=== PATIENT | male | born 1930 | race Caucasian/White ===

== ENCOUNTER 2017-05-12 02:37 | Emergency (ER) | payer OTHER ==
[~2017-05-12] VITALS: Ht 167.6 cm; Wt 79.4 kg
[~2017-05-12 02:37] MED LIST: ASPIR 8181 MG PO; FLOMAX0.4 MG PO; FLONASE 0.05%50 MCG NASAL; MEMANTINE HCL10 MG PO; SILACE50 MG/5 ML PO; [UNRECOGNIZED DRUG - OTHER]
[2017-05-12] MEDS ORDERED: TYLENOL EXTRA500 MG PO (03:17)
[2017-05-12] MEDS ORDERED: MIRALAX17 GM PO ×2 (03:18→03:19)
[2017-05-12] MEDS ORDERED: CRANBERRY400 MG PO (03:18)
[2017-05-12] MEDS ORDERED: MILK OF MA2400 MG/10 PO (03:19)
[2017-05-12] MEDS ORDERED: REFRESH OPTIVE15 ML OPHTHALMIC (03:20)
[2017-05-12] MEDS ORDERED: SENNA-S TABLET1 EACH PO (03:21)
[2017-05-12] MEDS ORDERED: TYLENOL325 MG PO (04:10)
[2017-05-12] MEDS ORDERED: ULTRAM 50MG TAB50 MG PO (04:10)
== END 2017-05-12 04:30 | disposition home or self-care (01) ==
LOC: ER 02:37
DX: S00.03XA Contusion of scalp, initial encounter (principal); S22.31XA Fracture of one rib, right side, initial encounter for closed fracture; Z88.2 Allergy status to sulfonamides; W06.XXXA Fall from bed, initial encounter; Y93.89 Activity, other specified; Y92.89 Other specified places as the place of occurrence of the external cause; Y99.8 Other external cause status

== ENCOUNTER → 2017-11-15 | Outpatient (CLI) | payer OTHER ==
[~2017-11-15] MED LIST changes: +CRANBERRY400 MG PO; +MILK OF MA2400 MG/10 PO; +MIRALAX17 GM PO; +REFRESH OPTIVE15 ML OPHTHALMIC; +SENNA-S TABLET1 EACH PO; +TYLENOL EXTRA500 MG PO; +TYLENOL325 MG PO; +ULTRAM 50MG TAB50 MG PO
[2017-11-15 07:59] LABS: CREATININE 1.1 mg/dL (0.7-1.3)
== END ==
LOC: CAT 07:24
PROVIDERS: Internal Medicine
DX: R91.8 Other nonspecific abnormal finding of lung field (principal); G30.9 Alzheimer's disease, unspecified

== ENCOUNTER 2019-03-14 14:07 | Inpatient (IN) | payer OTHER ==
[~2019-03-14] VITALS: Ht 157.5 cm; Wt 63.5 kg
[2019-03-14 14:08] VITALS: BP 117/50
[2019-03-14 14:41] LABS: ABSOLUTE NEUTROPHILS 8.9 thou/uL (1.4-8.2); BASOPHILS 0.1 % (0.0-2.0); EOSINOPHILS 0.1 % (0.0-3.0); HEMATOCRIT 43.2 % (42.0-52.0); HEMOGLOBIN 14.2 gm/dL (14.0-18.0); LYMPHOCYTES 8.6 % (24.0-44.0); MCHC 32.8 g/dL (28.0-37.0); MCV 94.4 fL (80.0-100.0); MONOCYTES 6.7 % (1.0-8.0); PLATELET COUNT 203 thou/uL (150-400); POLYS 84.5 % (36.0-66.0); RBC 4.58 mil/uL (4.50-6.00); RDW 14.9 % (10.5-14.5); WBC 10.5 thou/uL (4.0-11.0)
[2019-03-14 14:50] LABS: ANION GAP 7 mmol/L (7-16); BUN 26 mg/dL (7-18); CALCIUM 9.4 mg/dL (8.5-10.1); CHLORIDE 108 mmol/L (98-107); CO2 29 mmol/L (21-32); CREATININE 1.3 mg/dL (0.7-1.3); GLUCOSE 117 mg/dL (74-106); POTASSIUM 4.1 mmol/L (3.5-5.1); SODIUM 144 mmol/L (136-145)
[2019-03-14 15:00] LABS: ALBUMIN 3.5 g/dL (3.4-5.0); SGOT 24 U/L (15-37); SGPT 30 U/L (30-65); TOTAL BILIRUBIN 0.5 mg/dL (<0.1-1.0); TOTAL PROTEIN 7.5 g/dL (6.4-8.2); TROPONIN-I <0.06 ng/mL (<0.06)
[2019-03-14 17:32] LABS: URINE BILIRUBIN NEGATIVE (Negative); URINE BLOOD 2+ (Negative); URINE CLARITY CLOUDY; URINE COLOR YELLOW; URINE GLUCOSE-RANDOM* NEGATIVE (Negative); URINE KETONES NEGATIVE (Negative); URINE NITRITE-REFLEX NEGATIVE (Negative); URINE PROTEIN (DIPSTICK) TRACE (Negative); URINE UROBILINOGEN 0.2 E.U./dl (0.2-1.0)
[2019-03-14 17:33] LABS: URINE LEUKOCYTES-REFLEX 2+ (Negative)
[2019-03-14 17:42] LABS: BACTERIA-REFLEX >30 Many /HPF (None Seen); CASTS None Seen /LPF (None Seen); CRYSTALS None Seen /LPF (None Seen); SQUAMOUS None Seen /LPF (0-3); URINE RBC 3-10 Few /HPF (0-2); URINE WBC-REFLEX >25 Many /HPF (0-5)
[2019-03-14 17:45] VITALS: BP 112/61
[2019-03-14 20:26] VITALS: BP 123/50
[2019-03-15 01:01] VITALS: BP 104/59
--- NOTE | 2019-03-15 02:08 | NUR ---
Pt admitted at beginning of shift. Alert to self only,verbalizes a few words. assisted with admission questions,incontinent of B&B. Pt had a large coffee ground emesis,medicated for nausea. Beatrice PHY THERAPIST notified;Pepcid changed to Protonix BID and collect a sample if it happens again. at the bedside for the night. VSS.Denies pain on assessment. Fall precautions implemented. Pt is NPO. Will continue to monitor pt.
[2019-03-15 05:16] VITALS: BP 133/47
[2019-03-15 05:53] LABS: ABSOLUTE NEUTROPHILS 6.7 thou/uL (1.4-8.2); BASOPHILS 0.3 % (0.0-2.0); EOSINOPHILS 0.1 % (0.0-3.0); HEMATOCRIT 40.1 % (42.0-52.0); HEMOGLOBIN 13.1 gm/dL (14.0-18.0); LYMPHOCYTES 9.9 % (24.0-44.0); MCH 30.9 pg (26.0-34.0); MCHC 32.7 g/dL (28.0-37.0); MCV 94.6 fL (80.0-100.0); MONOCYTES 5.3 % (1.0-8.0); PLATELET COUNT 173 thou/uL (150-400); POLYS 84.4 % (36.0-66.0); RBC 4.24 mil/uL (4.50-6.00); WBC 7.9 thou/uL (4.0-11.0)
[2019-03-15 06:03] LABS: CALCIUM 8.6 mg/dL (8.5-10.1); CREATININE 1.2 mg/dL (0.7-1.3); MAGNESIUM 1.8 mg/dL (1.8-2.4); POTASSIUM 3.9 mmol/L (3.5-5.1)
[2019-03-15 08:00] VITALS: BP 99/70
[2019-03-15 11:49] VITALS: BP 108/48
[2019-03-15 16:08] VITALS: BP 95/48
--- NOTE | 2019-03-15 16:20 | NUR ---
BEDSIDE RPEORT GIVEN TO DARINEL CROWELL.
--- NOTE | 2019-03-15 16:28 | NUR ---
TRY TO TURN PT BUT FAMILY STATES THAT HE WILL ALWAYS GOTO LEFT SIDE. STIL PLACE PILLOWS UNDER BUTTOCK TO HELP PREVENT PRESSURE ULCER.
[2019-03-15 19:38] VITALS: BP 92/45
--- NOTE | 2019-03-16 03:02 | NUR ---
ASSUMED CATRE OF PT AT 1900 PT ASSESSED AT START OF SHIFT A&O TO SELF. OBEYS BASIC COMMAND AND ANSWERS SIMPLE YES/NO QUESTIONS. Q2 TURNS DONE FREQ. ISOLATION MAINTAINED NO LOOSE STOOL OR EMESIS THIS SHIFT.IV INTACT IN RT AC ABX INFUSING. PT INCONTINET OF BOWEL. WILL CONT WITH POC TILL EOS.
[2019-03-16 03:25] VITALS: BP 119/61
[2019-03-16 04:41] LABS: HEMATOCRIT 33.9 % (42.0-52.0); HEMOGLOBIN 11.3 gm/dL (14.0-18.0); MCH 31.5 pg (26.0-34.0); MCHC 33.4 g/dL (28.0-37.0); MCV 94.4 fL (80.0-100.0); RBC 3.59 mil/uL (4.50-6.00); RDW 14.7 % (10.5-14.5); WBC 5.3 thou/uL (4.0-11.0)
[2019-03-16 04:51] LABS: CALCIUM 8.2 mg/dL (8.5-10.1); CREATININE 1.1 mg/dL (0.7-1.3); POTASSIUM 3.5 mmol/L (3.5-5.1)
[2019-03-16 07:40] VITALS: BP 87/42
[2019-03-16 08:50] VITALS: BP 92/48
--- NOTE | 2019-03-16 10:07 | NUR ---
INITIAL ASSESSMENT: Pt evaluated for d/c planning needs. Reviewed chart and spoke with nurse, pt and pt's daughter. Pt is a [facility] resident at [facility]. Pt's lives in patio home at [facility]. Pt was able to ambulate with walker at facility prior to admission. Pt needed assistance with bathing, dressing, toileting and feeding. Dtr plans on pt returning to [facility] on d/c from hospital. Will remain available to assist as needed.
[2019-03-16 12:08] VITALS: BP 100/44
--- NOTE | 2019-03-16 12:49 | EKG ---
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[id number] Requested By: Taylor Oakes Order Number: [id number] MD: Wily Aguirre Measurements Intervals [place] Rate: 49 P: 70 SC: 214 QRS: 71 QRSD: 117 T: 7 QT: 431 QTc: 390 Interpretive Statements Sinus bradycardia Nonspecific intraventricular conduction delay Compared to ECG 10/23/2015 18:03:15 Heart rate has slowed Electronically Signed On 03-16-2019 12:49:05 OVEN HEATER by Wily Aguirre [email or web address] <ELECTRONICALLY SIGNED> By: Wily Aguirre MD, [facility] 03/16/19 1249 1416 141 Wily Aguirre MD, FAC /EPI
[2019-03-16 15:44] VITALS: BP 91/49
[2019-03-16 20:17] VITALS: BP 118/63
--- NOTE | 2019-03-17 05:25 | NUR ---
ASSUMED CARE AT 1900. PT ALERT TO SELF, ANSWERS SOME QUESTIONS WITH SHORT/SIMPLE ANSWERS. NO PAIN OR SOB. DENIES FEELING NAUSEATED; HAS NOT VOMITED OR HAD A STOOL OVERNIGHT. INCONT OF URINE, TENDS TO LAY TO THE LEFT, CAUSING SOME BLANCHABLE REDNESS TO LEFT THIGH/BUTTOCK. Q2 TURNS AND PERICARE WITH BARRIER CREAM APPLIED. IV FLUIDS AND ABX INFUSING OVERNIGHT. HR HAS BEEN IN THE 50'S OVERNIGHT. NO OTHER CONCERNS, WILL CONTINUE TO MONITOR.
[2019-03-17 06:10] VITALS: BP 119/71
[2019-03-17 08:04] VITALS: BP 118/74
[2019-03-17 12:05] LABS: ABSOLUTE NEUTROPHILS 2.8 thou/uL (1.4-8.2); BASOPHILS 0.3 % (0.0-2.0); EOSINOPHILS 4.7 % (0.0-3.0); HEMATOCRIT 34.5 % (42.0-52.0); HEMOGLOBIN 11.8 gm/dL (14.0-18.0); LYMPHOCYTES 16.9 % (24.0-44.0); MCH 31.9 pg (26.0-34.0); MCV 93.9 fL (80.0-100.0); MONOCYTES 9.3 % (1.0-8.0); PLATELET COUNT 132 thou/uL (150-400); POLYS 68.8 % (36.0-66.0); RBC 3.68 mil/uL (4.50-6.00); RDW 14.7 % (10.5-14.5); WBC 4.1 thou/uL (4.0-11.0)
[2019-03-17 12:26] LABS: ALBUMIN 2.5 g/dL (3.4-5.0); CALCIUM 8.1 mg/dL (8.5-10.1); CREATININE 1.1 mg/dL (0.7-1.3); MAGNESIUM 1.7 mg/dL (1.8-2.4); PHOSPHORUS 2.6 mg/dL (2.5-4.9); POTASSIUM 3.4 mmol/L (3.5-5.1); TOTAL BILIRUBIN 0.5 mg/dL (<0.1-1.0); TOTAL PROTEIN 5.4 g/dL (6.4-8.2)
[2019-03-17 15:38] VITALS: BP 130/85
--- NOTE | 2019-03-17 18:35 | NUR ---
pt is confused, but pt knows his name and follows some commands, pt 's vs are stable, pt needs help meals and ADL, RN has called dr to report abnormal LAB results, new order received.
[2019-03-17 21:55] VITALS: BP 121/61
[2019-03-18 06:25] VITALS: BP 133/89
[2019-03-18 06:45] LABS: POTASSIUM 3.4 mmol/L (3.5-5.1)
--- NOTE | 2019-03-18 07:36 | NUR ---
ASSUMED CARE AT 1900, ASSESSMENT COMPLETED. PT IN NO DISTRESS, DENIED PAIN, NO EMESIS OVERNIGHT. PT MORE RESISTANT TO CARES FIRST HALF OF THE SHIFT; GRABBING AND HOLDING ONTO BLANKETS OR STAFF'S HANDS, KEEPING ARMS HELD TIGHT AGAINST HIMSELF WHICH MADE CLEANING UP DIFFICULT. LATER IN SHIFT, PT MORE RELAXED, EASIER TO TURN AND CLEAN UP. COPIOUS AMOUNTS OF INCONT URINE, COMPLETED TWO FULL BED CHANGES OVERNIGHT. TOLERATED THIN LIQUIDS FROM CUP AND MEDS IN APPLESAUCE. NO OTHER CONCERNS, SHIFT REPORT GIVEN AT 0700.
[2019-03-18 07:56] VITALS: BP 118/50
[2019-03-18 11:19] VITALS: BP 115/52
--- NOTE | 2019-03-18 15:17 | NUR ---
PT's eyes are close, but pt knows his name and he can follow some commands, pt needs help ADL and meals, pt is continuing iv abx for UTI, PT 'eating and drinking have improved by assist feeding, pt's vs are stable, pt's status has changed to MS, PT will transfer to room 453, pt's family has notied.
[2019-03-18 16:22] VITALS: BP 88/45
--- NOTE | 2019-03-18 16:30 | NUR ---
PT ARRIVED VIA BED. PT NOT SPEAKING TO NURSE, PT HAS EYES CLOSED. PT DOES LAUGH AT SOME THINGS NURSE SAYES. PT LYING ON LEFT SIDE. PT ON ROOM AIR. PT HAS SCD'S ON. PT ON CONTACT ISOLATION. IV FLUIDS RUNNING, D51/2 NS WITH 20MEQ K+ AT 30ML/HR. PT HAS LEFT ARM WITH IV WRAPPED IN COBAN. PT PULLING AT COBAN. PT REDIRECTED TO NOT PULL ON IV AREA.
--- NOTE | 2019-03-18 16:46 | NUR ---
HAD TO CRUSH MED AND PUT IN PUDDING. PT TOLERATED WELL.
--- NOTE | 2019-03-18 17:45 | NUR ---
PT NEED FED DINNER. PT ATE 80% OF DINNER. PT TOLERATED WELL.
[2019-03-18 19:16] VITALS: BP 84/54
--- NOTE | 2019-03-19 04:31 | NUR ---
PROGRESS PT ALERT AND ORIENTED TO SELF AND SPOUSE. PT IS BLIND AND KEEPS HIS EYES CLOSED. HAS GOOD HEARING JUST NEED TO EXPLAIN ACTIONS AND CARES PRIOR TO PERFORMING. IVF'S INFUSING ORDERED, PT DENIES PAIN. TAKES MEDS CRUSHED IN APPLESAUCE, ATE THE REMAINING PORTION OF THE APPLESAUCE WITH NO DIFFICULTY. INCONTINENT OF URINE CLEANSED AND REPOSITIONED. HE LIKES TO LAY ON HIS LEFT SIDE, SO ENCOURAGED TO REPOSITION OFTEN. CONTINUE POC.
[2019-03-19 06:21] LABS: ABSOLUTE NEUTROPHILS 2.7 thou/uL (1.4-8.2); BASOPHILS 0.3 % (0.0-2.0); HEMATOCRIT 38.3 % (42.0-52.0); HEMOGLOBIN 12.6 gm/dL (14.0-18.0); LYMPHOCYTES 23.3 % (24.0-44.0); MCHC 32.8 g/dL (28.0-37.0); MCV 94.4 fL (80.0-100.0); MONOCYTES 9.8 % (1.0-8.0); PLATELET COUNT 169 thou/uL (150-400); POLYS 61.6 % (36.0-66.0); RBC 4.06 mil/uL (4.50-6.00); RDW 15.1 % (10.5-14.5); WBC 4.3 thou/uL (4.0-11.0)
[2019-03-19 06:28] LABS: CALCIUM 8.8 mg/dL (8.5-10.1); PHOSPHORUS 2.7 mg/dL (2.5-4.9); POTASSIUM 4.3 mmol/L (3.5-5.1)
[2019-03-19 08:34] VITALS: BP 95/68
[2019-03-19 15:15] VITALS: BP 97/56
--- NOTE | 2019-03-19 15:55 | NUR ---
ASSUMED CARE THIS AM, OPENS EYES TO COMMAND, FOLLOWS SIMPLE COMMANDS, ORIENTED TO SELF. NO PAIN OR NAUSEA OR VOMITING. TURNING 2Q, INCONTINENT OF STOOL AND URINE. BATH GIVEN AND SKIN INTACT. POSSIBLE DISCHARGE TOMORROW.
--- NOTE | 2019-03-19 16:06 | NUR ---
CARE TEAM INDICATED THAT PT MIGHT BE MEDICALLY STABLE TO RETURN TO HIS [facility] SOON TOMORROW. CM MET WITH PT AND SPOUSE AT BEDSIDE THIS DAY. SPOUSE IS AWARE. SHE INDICATED THAT PT HAS HAD HOME HEALTH THERAPY AT [facility] BUT CAN'T RECALL PROVIDER. CM CALLED AND SPOKE WITH HEAD NURSE ELIGIO AND SHE INDICATED THAT THEY USE [facility] FOR PT AND OT. CM INDICATED THAT CLINICAL UPDATE WOULD BE SENT TO . CM TO FOLLOW INDICATED WITH DC PLANNING.
--- NOTE | 2019-03-19 18:41 | NUR ---
SPOKE TO UDAY JOHNSON ON PHONE AND SHE IS CONCERNED THAT HER HAS NOT HAD A BOWEL MOVEMENT SINCE TUESDAY. SHE WAS INFORMED THAT PATIENT RECIEVED MIRALAX TODAY MIXED IN PRUNE JUICE AND AND DULCOLAX SUPPOSITORY. SHE STATED SHE WILL NOT ACCEPT HIS DISCHARGE UNTIL HE HAS A BM.
[2019-03-19 19:08] VITALS: BP 113/55
--- NOTE | 2019-03-20 02:23 | NUR ---
PT APPEARED TO BE SLEEPING WHEN CARE WAS ASSUMED AT 1900.PT IS CONFUSED .PT IS ON A PUREE DIET AND THIN LIQUID DIET.PT IS 2 PERSONS ASSIST AND TOTAL CARE.PT MEDICATION ADMINISTERED CRUSHED IN APPLE SAUCE.PT HAD A BM THIS MORNING.PLAN IS TO GO BACK TO FACILITY AFTER A BM.COMTINUE POC
[2019-03-20 05:59] LABS: CALCIUM 8.5 mg/dL (8.5-10.1); CREATININE 0.9 mg/dL (0.7-1.3); POTASSIUM 3.6 mmol/L (3.5-5.1)
[2019-03-20 08:12] VITALS: BP 109/57
--- NOTE | 2019-03-20 12:08 | HC ---
[facility] [place] [address] CONSULTATION Name: BREANN JOHNSON Room #: 453-P ADM IN M.R.#: [id number] Admission: 03/14/19 Attend Phys: Ricardo Kirkpatrick MD Discharge: Date of : 31 Report #: [id number] THIS REPORT FOR: //name// CC: Jayla Kirkpatrick DATE OF SERVICE: 03/16/2019 INFECTIOUS DISEASE CONSULTATION REASON FOR CONSULTATION: I was asked to evaluate concerning multidrug-resistant urinary tract infection. HISTORY OF PRESENT ILLNESS: The patient is an 88-year-old with underlying dementia, lives in a nursing facility. He has had a history of prostate issues. He has seen Dr. Ananda Ward in the past. He actually has a followup appointment with him next month, according to his family member. Presents now with nausea, vomiting and diarrhea. Possible coffee-ground emesis. No eder blood noted in his stool. The patient was unable to give any further details. Following his hospitalization, he was placed on ciprofloxacin and metronidazole. His CT scan showed evidence of ileus along with thickening of the bowel distally. There was some question whether we are dealing with ischemia or infectious etiology. Stool for C. diff was negative. He also had a urinalysis, which showed pyuria, bacteriuria and urine culture showing ESBL-producing E. coli. He has had no cough or sputum production. His appetite has been reasonable. No rashes or decubiti. REVIEW OF SYSTEMS: Ten-point review of system was negative other than what has been described above. ALLERGIES: SULFA. MEDICATIONS: Included Flomax, Flonase, Tylenol, MiraLax, milk of magnesia, now ciprofloxacin and metronidazole. PAST MEDICAL HISTORY: Alzheimer's dementia, depression, incontinence, constipation, bladder outlet issues. FAMILY HISTORY: Noncontributory. SOCIAL HISTORY: Nonsmoker, no significant alcohol intake. PHYSICAL EXAMINATION: VITAL SIGNS: He was afebrile and hemodynamically stable. GENERAL: He was awake, although unable to communicate significantly. He was oriented to person only. [facility] [address] [place] [address] CONSULTATION Name: BREANN JOHNSON [facility] Room #: 453-P [facility] IN M.R.#: [id number] Admission: 03/14/19 Attend Phys: Ricardo Kirkpatrick MD Discharge: Date of : 31 Report #: [id number] SKIN: Without rash or decubitus. No palpable adenopathy. EYES: Without scleral icterus. MOUTH: Without mucositis. NECK: Supple. LUNGS: Clear. HEART: Regular, without murmur, gallop or rub. ABDOMEN: Soft and nontender. No hepatosplenomegaly or mass. GENITOURINARY: External genitalia without mass or lesion. He was incontinent of urine. RECTAL: Not performed. He was just seen by GI service earlier. EXTREMITIES: Without clubbing, cyanosis or edema. He did have evidence of kyphosis. NEUROLOGIC: Mental status markedly debilitated, unable to roll over on his own. Very poor vision. LABORATORY STUDIES: Urine culture, E. coli sensitive to gentamicin, amikacin, meropenem, ertapenem, nitrofurantoin, Zosyn. Stool for C. diff was negative. Urinalysis, pyuria and bacteriuria. Creatinine 1.1. Hemoglobin 11.3, WBC 5.3, platelet 131,000. Stool PCR negative for salmonella, Shigella, Campylobacter. CT scan as noted above. IMPRESSION: 1. Ileus versus colitis, etiology yet to be determined whether this is underlying ischemic or infectious in etiology. 2. Extended spectrum beta-lactamase Escherichia coli urinary tract infection. 3. Bradycardia. 4. Alzheimer's disease. 5. Benign prostatic hypertrophy. 6. Blindness. RECOMMENDATIONS: We will check postvoid residual. Continue with meropenem. Continue current level of support. <ELECTRONICALLY SIGNED> By: Wiliam Cook MD 03/20/19 1208 1611 1853 Wiliam Cook MD /nt
[2019-03-20 12:44] VITALS: BP 109/57
[2019-03-20] MEDS ORDERED: MERREM500 MG IV (13:06)
[2019-03-20] MEDS ORDERED: PROBIOTIC1 EAC7 PO (13:06)
--- NOTE | 2019-03-20 13:25 | NUR ---
DISCHARGE PLANNED FOR TODAY. DIS[facility]ING BACK TO [facility] WITH [facility] PER RECOMMENDATIONS. PATIENT REFERRAL FAXED TO [facility] PER REQUEST. CALL PLACED TO ROSALIA HERRERA INTAKE LIAISON TO NOTIFY. AWAITING RESPONSE.
--- NOTE | 2019-03-20 15:16 | NUR ---
CARE TEAM INDICATED THAT PT NEEDS AT LEAST 5 MORE DAYS OF IV ABX. CM CALLED NURSE AT PT'S AL FACILITY AND SHE INDICATED THAT THEY CAN'T MANAGE IV ABX. CM MET WITH PT'S SPOUSE AT BEDSIDE THIS DAY AND INDICATED THAT PT WOULD NEED TO GO FOR A SKILLED POST ACUTE CARE STAY FOR THERAPY AND IV ABX. SHE ASKED THAT REFERRALS BE SENT TO [facility] FOR REVIEW FOR POSSIBLE ADMISSION. [facility]IL TUESDAY WAITING TO HEAR BACK FROM [facility]. CM TO FOLLOW INDICATED WITH DC PLANNING.
[2019-03-20 15:39] VITALS: BP 110/42
--- NOTE | 2019-03-20 19:33 | NUR ---
Patient had eyes closed most of the time, sitting on the chair after lunch. bed side; good appetite; had BM this shift, moderate volume, dark brown, formed and soft. afebrile.
[2019-03-20 20:06] VITALS: BP 87/61
--- NOTE | 2019-03-21 08:26 | NUR ---
progress pt alert and responsive does answer questions or responds to questions. ivf's infusing as ordered iv antibiotics continue, lf iv wrapped with koban swollen and red day shift to replace iv. incontinent of bowel and bladder. had a few large urinary incontinent episodes and a large stool. repositioned frequently, favors his left side and actually repositioned his self from supine to his left side. bed alarm and fall precautions in place.
[2019-03-21 09:26] VITALS: BP 119/59
--- NOTE | 2019-03-21 09:40 | HC ---
[facility] [place] [address] CONSULTATION Name: BREANN JOHNSON Room #: 453-P ADM IN M.R.#: [id number] Admission: 03/14/19 Attend Phys: Ricardo Kirkpatrick MD Discharge: Date of : 31 Report #: [id number] THIS REPORT FOR: //name// CC: Jayla Christensen DATE OF SERVICE: 03/15/2019 HISTORY OF PRESENT ILLNESS: The patient is an 88-year-old male, lives in a nursing facility with severe dementia, unable to get much history. He denies any abdominal pain at this time. It appears he was having nausea, vomiting, diarrhea and possible coffee-ground emesis per the daughter, per nursing. The patient had a CT scan of the abdomen and pelvis yesterday on admission. Fluid filled stomach and fluid filled small bowel loops may represent an ileus, moderate area of thickening of the wall of the descending colon, which could be consistent with a diffuse colitis. A few small diverticula were also noted in the sigmoid colon. The patient was started on Cipro and Flagyl at this time. Stool studies have been sent, but are pending. Unknown if the patient has had a colonoscopy in the past or when this was last performed. Nurse reports no evidence of bright red blood or maroon stools or blood in the stool with his last bowel movement. There have been no signs of hematemesis or coffee-ground emesis here. The patient's hemoglobin today is 13.1, was 14.2 on admission yesterday, white count is normal. PAST MEDICAL HISTORY: Alzheimer's dementia, history of depression, incontinence, history of constipation. MEDICATIONS ON ADMISSION: Flomax, Flonase, Tylenol p.r.n., MiraLax b.i.d., milk of magnesia p.r.n., Refresh eyedrops, senna. ALLERGIES: SULFA. REVIEW OF SYSTEMS: Unobtainable secondary to severe dementia. FAMILY HISTORY: Unknown. SOCIAL HISTORY: There is no reported history of alcohol or tobacco use. PHYSICAL EXAMINATION: VITAL SIGNS: Temperature is 98.1, pulse 50, blood pressure 99/70, respiratory rate is 20. GENERAL: He appears to be comfortable. He is able to answer a few yes or no questions as far as abdominal pain, but he is not oriented to place. HEENT: Sclerae nonicteric. Oropharynx clear. NECK: Supple. [facility] [address] [place] [address] CONSULTATION Name: BREANN JOHNSON Room #: 453-P [facility] IN [facility].#: [id number] Admission: 03/14/19 Attend Phys: Ricardo Kirkpatrick MD Discharge: Date of : 31 Report #: [id number] CARDIOVASCULAR: Regular rate and rhythm. CHEST: Clear to auscultation bilaterally. ABDOMEN: Soft. He is nontender, nondistended. EXTREMITIES: No cyanosis, clubbing or edema. LABORATORY DATA: Sodium 145, potassium 3.9, chloride 110, bicarbonate 27, BUN 18, creatinine 1.2, glucose 128. AST 24, lipase 101, total bilirubin 0.5, magnesium 1.8, calcium 8.6, alkaline phosphatase 106, ALT 30, total protein 7.5, albumin 3.5. Troponin was less than 0.06. WBC is 7.9, hemoglobin 13.1, platelet count is 173. Stool studies are pending. UA showed greater than 25 wbc's, bacteria greater than 30. ASSESSMENT AND PLAN: Nausea, vomiting, diarrhea, suspect possible infectious gastroenteritis. CT showing possible colitis in the descending colon. This may be infectious in nature. Also, consider the possibility of ischemic colitis. The patient also reportedly had a history of episode of coffee-ground emesis. He is currently on Protonix at this time. He was on heparin, this has been held. We will continue to monitor his hemoglobin closely; currently, is stable. There have been no signs of bleeding since admission per nursing. May consider endoscopy; however, this may be difficult due to the patient's mental status. We will continue to monitor closely. Agree with antibiotics, which have been started. Stool studies are pending at this time. We will obtain further history hopefully through family members. Thank you for allowing me to participate in his care. <ELECTRONICALLY SIGNED> By: Morris Eckert MD 03/21/19 0940 1151 1228 Morris Eckert MD /nt
--- NOTE | 2019-03-21 13:48 | NUR ---
ASSUMED CARE AROUND 0700. ALERT AND AWAKE AND REPONDS TO HIS NAME. ISO FOR ESBL IN URINE. AWAITING PLACEMENT BY SW. NO S/S ACITE DISTRESS NOTED OR REPORTED AT THIS TIME. WILL CONT TO MONITOR FOR ANY CHANGES IN CONDITION.
[2019-03-21 15:00] VITALS: BP 120/51
--- NOTE | 2019-03-21 15:32 | NUR ---
[facility] INDICATED THEY ARE ABLE TO ACCEPT PT FOR POST [facility]UTE [facility]ARE STAY. CARE TEAM INDICATED PT IS MEDICALLY STABLE TO DC THERE TODAY. PT'S IS AWARE AND AGREEABLE. CHART COPY ORDERED. ORDERS FAXED. TRANSPORT ARRANGED FOR 1600. REPORT TO BE CALLED TO [phone] . NO OTHER CM INTERVETNION INDICATED. CASE CLOSED.
== END 2019-03-21 16:59 | DRG 394 ==
LOC: ER 14:07 → 4W 16:59 → EROBS 16:59 → 3W 16:59 → 4W 03-18 16:03
PROVIDERS: Hospitalist; Internal Medicine; Nurse Practitioner; Physician Assistant; ADMIT Hospitalist
DX: K55.9 Vascular disorder of intestine, unspecified (principal); N39.0 Urinary tract infection, site not specified; K56.7 Ileus, unspecified; Z16.12 Extended spectrum beta lactamase (ESBL) resistance; E87.0 Hyperosmolality and hypernatremia; B96.29 Other Escherichia coli [E. coli] as the cause of diseases classified elsewhere; N40.0 Benign prostatic hyperplasia without lower urinary tract symptoms; E86.0 Dehydration; D64.9 Anemia, unspecified; E87.6 Hypokalemia; E83.42 Hypomagnesemia; G30.9 Alzheimer's disease, unspecified; G47.00 Insomnia, unspecified; F02.80 Dementia in other diseases classified elsewhere, unspecified severity, without behavioral disturbance, psychotic disturbance, mood disturbance, and anxiety; K59.09 Other constipation; Z66 Do not resuscitate; F32.9 Major depressive disorder, single episode, unspecified; F41.9 Anxiety disorder, unspecified; Z88.2 Allergy status to sulfonamides
CPT/HCPCS: 10047; 10879